=== PATIENT | female | born 1985 | race Caucasian/White ===

== ENCOUNTER 2022-08-05 16:14 | Outpatient (CLI) | payer OTHER, SELFPAY ==
[2022-08-05 21:52] LABS: Cholesterol* 216 mg/dL (90-199)
[2022-08-05 21:53] LABS: Glucose* 110 mg/dL (60-115); HDL Cholesterol* 97 mg/dL (>=50); LDL Cholesterol Calculated 105 mg/dL (<100); Triglycerides* 72 mg/dL (40-149)
== END 2022-08-05 16:15 | disposition home or self-care (01) ==
PROVIDERS: Visit Provider Registered Nurse
DX: Z01.419 Encounter for gynecological examination (general) (routine) without abnormal findings (principal); Z13.6 Encounter for screening for cardiovascular disorders; Z13.1 Encounter for screening for diabetes mellitus; Z13.29 Encounter for screening for other suspected endocrine disorder
CPT/HCPCS: 80061; 82947; 84443

== ENCOUNTER 2024-10-16 18:54 | Outpatient (CLI) | payer OTHER, SELFPAY ==
--- NOTE | 2024-10-16 19:00 | CRLHL7_ITS ---
For Patients: As a result of the Century Cures Act, medical imaging exams and procedure reports are released immediately into your electronic medical record. You may view this report before your referring provider. If you have questions, please contact your health care provider. BILATERAL SCREENING MAMMOGRAM WITH COMPUTER-AIDED DETECTION AND TOMOSYNTHESIS TECHNIQUE: CC and MLO views were obtained. These mammographic images have been obtained using full-field digital technique. These mammographic images were interpreted with the benefit of computer-aided detection. Breast Tomosynthesis was used in this interpretation. COMPARISON FILM: Baseline. FINDINGS: There are scattered areas of fibroglandular density. IMPRESSION: There is no radiographic evidence for malignancy. ASSESSMENT: BI-RADS Category 1: Negative RECOMMENDATION: Routine screening mammogram in 1 year. A lay language report of this examination will be provided to the patient. Uri Brumfield M.D. Diagnostic Radiologist [email or web address] SP/Dictated by: Uri Brumfield MD @ 10/17/2024 12:13:00 PM (Electronically Signed)
== END 2024-10-16 18:55 | disposition home or self-care (01) ==
LOC: MAMMO 18:55
PROVIDERS: Visit Provider Registered Nurse
DX: Z12.31 Encounter for screening mammogram for malignant neoplasm of breast (principal)
CPT/HCPCS: 77063; 77067